=== PATIENT | female | born 1955 | race Caucasian/White ===

== ENCOUNTER → 2017-02-16 | Outpatient (CLI) | payer BC ==
--- NOTE | 2017-02-16 09:24 | BD ---
EXAMINATION TYPE: MG DEXA axial skeleton. DATE OF EXAM: 02/16/2017 CLINICAL HISTORY: Known osteoporosis per order. Height: 4 ft, 11 inches Weight: 93 pounds FRAX RISK QUESTIONS: Alcohol (3 or more units per day): no Family History (Parent hip fracture): no, grandfather Glucocorticoids (More than 3mos): yes; inhaler (Ex: prednisone, prednisolone, methylprednisolone, dexamethasone, and hydrocortisone). History of Fracture in Adulthood: left wrist 2006 Secondary Osteoporosis: 1. Type 1 Diabetes: no 2. Hyperthyroidism: no 3. Menopause before 45: yes, partial hysterectomy age 26 4. Malnutrition: no 5. Chronic liver disease: no Rheumatoid Arthritis: no Current Tobacco Use: yes RISK FACTORS HISTORY OF: Family History of Osteoporosis: no Drink Alcohol: very very rarely Active: yes Diet low in dairy products/other sources of calcium: at least one serving a day Postmenopausal woman: yes Take estrogen and/or progesterone medications: not now How long: a couple years Lost more than 2 inches in height since high school: no Frequent falls: no Poor Health: fair Hyperparathyroidism: no Adrenal Insufficiency: no MEDICATIONS: Prednisone or other steroids: yes, inhaler How Long: over 10 years Thyroid Medications: no Osteoporosis Medications: not now Which medication: injections How Long: twice Additional Medications: blood pressure meds, cholesterol Additional History: Breast CA, chemo, epidurals on back for pain(fell years ago & injured lower back. ..unsure if lumbar fracture); bleeding ulcers causing weight loss EXAM MEASUREMENTS: Bone mineral densitometry was performed using the [employer] System. Bone mineral density as measured about the Lumbar spine is: ----- L1-L4(G/cm2): 0.638 T Score Values are as follows: ----- L2: -4.6 ----- L3: -4.7 ----- L4: -4.3 ----- L1-L4: -4.5 Bone mineral density not previously done at this facility; done elsewhere Bone mineral density about the R hip (g/cm2): 0.625 Bone mineral density about the L hip (g/cm2): 0.622 T Score values are as follows: -----R Neck: -3.0 -----L Neck: -3.0 -----R Total: -3.1 -----L Total: -3.1 Bone mineral density not previously done at this facility; done elsewhere IMPRESSION: Osteoporosis (T Score less than -2.5) as noted by T Score values is confirmed in the low back and bot h hips. There is increased fracture risk and therapy is usually indicated based on age. Re-Screen 1-2 years. NOTE: T-SCORE=SD OF THE YOUNG ADULT MEAN.
--- NOTE | 2017-02-16 13:59 | MM ---
Reason for exam: screening (asymptomatic). History: Patient has history of breast cancer at age 35. Implant in the right breast. Mastectomy of the left breast. Chemotherapy. Physical Findings: Nurse did not find any significant physical abnormalities on exam. MG Screen Angela Unilateral W/Cad Bilateral CC and MLO view(s) were taken. ID view(s) were taken of the right breast. The breast tissue is heterogeneously dense. This may lower the sensitivity of mammography. No significant changes when compared with prior studies. ASSESSMENT: Benign, BI-RAD 2 RECOMMENDATION: Routine screening mammogram of the right breast in 1 year.
== END | disposition home or self-care (01) ==
LOC: RADBDWWP 08:19
PROVIDERS: ATTEND Family Medicine
DX: Z12.31 Encounter for screening mammogram for malignant neoplasm of breast (principal); M81.0 Age-related osteoporosis without current pathological fracture; Z98.82 Breast implant status; Z85.3 Personal history of malignant neoplasm of breast
CPT/HCPCS: 77080; G0202

== ENCOUNTER → 2017-04-02 | Outpatient (CLI) | payer BC ==
--- NOTE | 2017-04-02 09:46 | NM ---
EXAMINATION TYPE: NM gastric emptying study DATE OF EXAM: 04/02/2017 COMPARISON: NONE HISTORY: Gastroesophageal reflux Following administration of 2.2 mCi Tc 99m Sulfur Colloid with 1 cup of oatmeal projection images of the abdomen were obtained 10 minutes post ingestion. When possible, both anterior and posterior proje ction images were obtained to allow the calculation of the geometric mean activity. Clearance: 77 % Half-life: 40 min Gastroesophageal reflux: None IMPRESSION: Gastric emptying: Normal Gastroesophageal reflux: None Gastric emptying normal percentage values: 30 minutes: <70% of retention (> 30% emptying) suggests abnormally fast emptying. 60 minutes: <90% retention (>10% emptying) is normal; less than 30% retention (>70% emptying) suggest s abnormally rapid emptying. 90 minutes: <65% retention (> 35% emptying) is normal. 120 minutes: <60% retention (> 40% emptying) is normal. 180 minutes: <30% retention (> 70% emptying) is normal. Gastric emptying T-1/2: Solid: The normal range is 60-105 minutes Liquid only: Normal range is 10-45 minutes. Liquid only-children: At 60 minutes, normal range is 44-58 % . Liquid only-infants: At 60 minutes, normal range is 32-64 %. Additional references: Gastric Emptying Scintigraphy http://bit.[email or web address]
== END | disposition home or self-care (01) ==
LOC: RADNMMAIN 07:24
DX: K21.0 Gastro-esophageal reflux disease with esophagitis (principal)
CPT/HCPCS: 78264; A9541

== ENCOUNTER → 2017-04-06 | Outpatient (CLI) | payer BC ==
[2017-04-01 13:11] VITALS: BMI 17.7
[2017-04-06 13:32] VITALS: BP 89/58; PULSE 70; RESP 16; TEMP 98.6
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
== END | disposition home or self-care (01) ==
LOC: PNWHC3 12:50
PROVIDERS: ATTEND Anesthesiology
DX: M79.7 Fibromyalgia (principal); J44.9 Chronic obstructive pulmonary disease, unspecified; K21.9 Gastro-esophageal reflux disease without esophagitis; I10 Essential (primary) hypertension; F17.200 Nicotine dependence, unspecified, uncomplicated; Z79.899 Other long term (current) drug therapy; Z88.6 Allergy status to analgesic agent
CPT/HCPCS: 80307; 80346; 80364; 99211

== ENCOUNTER → 2017-04-27 | Outpatient (CLI) | payer BC ==
[2017-04-27 18:59] LABS: Non-African American GFR(MDRD) >60 (>60 ml/min/1.73 sqM)
--- NOTE | 2017-04-27 23:14 | MR ---
EXAMINATION TYPE: MR lumbar spine wo/w con DATE OF EXAM: 04/27/2017 COMPARISON: NONE HISTORY: LBP, BLE radic since 2005, hx breast ca 25 yrs ago TECHNIQUE: Multiplanar, multisequence images of the lumbar spine were acquired utilizing 8 mL intravenous MultiH ance gadolinium contrast. There is 2 cm anterior subluxation of L5 in relation to S1. There is bilateral L5 spondylolysis. I se e no lumbar disc herniation. There is no significant spinal stenosis in spite of the second-degree L5 -S1 spondylolisthesis. There is no compression fracture. There is narrowing of L5-S1 disc space. Ther e is no paraspinal mass. Sacroiliac joints appear intact. I see no pathologic enhancement. IMPRESSION: Second-degree L5-S1 spondylolisthesis. Bilateral L5 spondylolysis. No acute bony abnormality. No sign ificant spinal stenosis seen. Severe narrowing of L5-S1 disc space. Mild bilateral neural foraminal i mpingement at L5-S1 due to subluxation deformity.
== END | disposition home or self-care (01) ==
LOC: RADMRIMAIN 18:32
PROVIDERS: ATTEND Anesthesiology
DX: M48.07 Spinal stenosis, lumbosacral region (principal); M43.17 Spondylolisthesis, lumbosacral region; M47.816 Spondylosis without myelopathy or radiculopathy, lumbar region
CPT/HCPCS: 82565; 72158; 36415; A9577

== ENCOUNTER → 2017-05-04 | Outpatient (CLI) | payer BC ==
[2017-05-04 12:16] VITALS: BP 146/75; PULSE 70; RESP 16; TEMP 97.8
--- NOTE | 2017-05-04 12:36 | P.PN ---
Progress Note - Text This is a 61-year-old female with lower back pain due to lumbar spondylosis without myelopathy and right lumbar radiculopathy. The pain radiates down the right leg to the right foot with numbness and tingling in her right leg. The patient uses to respond to lumbar epidural steroid injection on the last time she had any injections on her back was in September 2016. The patient also uses morphine and she has been on this for a few years now. The patient understands that we cannot prescribe opioids for her for more than a few months and she has to look for a primary care physician who is willing to prescribe these medications. The patient should be weaned down on her dose and I went down from MS Contin 60 last time to MS Contin 30 mg now. I will schedule the patient to have lumbar epidural steroid injection will give her prescription for 1 month of the above-mentioned medicatiot however I will go down on the morphine IR to twice a day.
== END | disposition home or self-care (01) ==
LOC: PNWHC3 11:40
PROVIDERS: ATTEND Anesthesiology
DX: M47.816 Spondylosis without myelopathy or radiculopathy, lumbar region (principal)
CPT/HCPCS: 99211

== ENCOUNTER 2017-05-28 08:19 | Day surgery (SDC) | payer BC ==
[2017-05-27 09:11] VITALS: BMI 18.3
[~2017-05-28 08:19] MED LIST: LACTATED RINGERS 1,000 ML IV SCH
[2017-05-28 08:34] VITALS: TEMP 97.6
[2017-05-28] MEDS ORDERED: LIDOCAINE 1% 20 ML VIAL (10MG/ML) FOR IV START INTRADERMA ONE (08:48)
--- NOTE | 2017-05-28 08:55 | P.PN ---
Progress Note - Text Patient filled opioid medications from her PCP's office. Instructed her to get all medications from this individual, including her MSContin so she does not go into opioid withdrawal, which could include severe nausea/vomiting/diarrhea and potentially if it were to be severe. Patient verbalized understanding of these risks.
--- NOTE | 2017-05-28 09:10 | P.PCN ---
Date of Procedure: 05/28/17 Surgeon: Milton Duran Pathology: none sent Condition: stable Disposition: PACU Description of Procedure: PREOPERATIVE DIAGNOSIS: 1-Lumbar radiculitis. POSTOPERATIVE DIAGNOSIS: 1-Lumbar radiculitis. PROCEDURE 1. Lumbar epidural steroid injection under fluoroscopic guidance at the L5-S1 level. 2. Lumbar epidurogram. ANESTHESIA: Local with 1% lidocaine; IV sedation with Versed/fentanyl. EBL: Minimal PROCEDURE INDICATION: The patient with low back pain and radiculitis symptoms unresponsive to conservative treatment. Fluoroscopy was used to optimize visualization of the needle placement and to maximize safety. No use of blood thinners. LESI #1 today. PROCEDURE DESCRIPTION / TECHNIQUE: The patient was seen and identified in the preoperative area. Risks, benefits, complications, and alternatives were discussed with the patient, including but not limited to bleeding, infection, nerve damage, allergic reactions to medications, and incomplete pain relief. The patient agreed to proceed with the procedure and signed the consent after all questions were answered. IV was started, and vital signs were stable. Patient was taken to the OR and time out was completed to confirm patient position, procedure, laterality of pain, and allergies. The patient was placed in the prone position on procedure table and a pillow was placed under the abdomen to reduce lumbar lordosis. The lumbosacral area was prepped and draped in the usual sterile fashion. Critical pause was taken. Vital signs were closely monitored during the procedure. Conscious sedation was used during the procedure to decrease patients anxiety. Using anterior-posterior fluoroscopy, the L5-S1 interlaminar space was identified and the skin over this site was marked and then infiltrated with 1% lidocaine subcutaneously. Subsequently, a 20-gauge Tuohy epidural needle was inserted and advanced toward the epidural space using the Loss of resistance technique and guided by AP and lateral fluoroscopy. The correct needle position in the epidural space was verified with the injection of 2 mL of the water soluble contrast dye Omnipaque 300 contrast and observing an excellent epidurogram with the epidural spread of the dye, after negative aspiration for blood and CSF and in the absence of paresthesias. Again after negative aspiration, a 8 ml mixture containing 20 mg of PF Decadron and 5 ml of preservative free Normal Saline, and 2 ml of preservative free lidocaine 1% solution was injected and a washout of epidurogram was seen. Needle was withdrawn intact, skin was cleansed, and bandages were applied. COMPLICATIONS: None COMMENTS: DISPOSITION / PLANS: The patient was placed in a supine position and transferred to the recovery area in a stable condition for observation. There was no evidence of lower extremity motor or sensory deficit after the procedure. Patient was discharged from the recovery room after meeting discharge criteria. Home discharge instructions were given to the patient by the staff. The patient was reexamined prior to discharge and there were no issues. The patient will schedule a repeat procedure in 2-4 weeks. Of note, patient has begun getting opioids from PCP and notes that she did change physicians for her medications. I advised her to follow up to get her MSContin refilled to ensure she does not go into withdrawal. She verbalized understanding.
[2017-05-28] MEDS ORDERED: IV FLUID CONTINUATION 1,000 ML IV ONE ×2 (09:15)
--- NOTE | 2017-05-28 09:22 | FL ---
EXAMINATION TYPE: FL guided pain mgmt statistic DATE OF EXAM: 05/28/2017 HISTORY: Pain Lumbar epidural injection was performed. 12 SEC FL, 2 FILMS SCANNED
[2017-05-28 09:33] VITALS: BP 127/68; PULSE 62; RESP 18
== END 2017-05-28 09:44 | disposition home or self-care (01) ==
LOC: ORPAIN 08:19
PROVIDERS: ATTEND Anesthesiology
DX: M47.26 Other spondylosis with radiculopathy, lumbar region (principal); M43.17 Spondylolisthesis, lumbosacral region; Z79.891 Long term (current) use of opiate analgesic
CPT/HCPCS: 62323; J2250; J1100; Q9965; J3010; 99152

== ENCOUNTER 2017-07-27 06:25 | Day surgery (SDC) | payer BC ==
[2017-07-23 15:57] VITALS: BMI 18.6
[2017-07-27 06:50] VITALS: TEMP 98.1
[2017-07-27] MEDS ORDERED: LIDOCAINE 1% 20 ML VIAL (10MG/ML) FOR IV START INTRADERMA ONE (07:01)
--- NOTE | 2017-07-27 07:37 | P.PCN ---
Date of Procedure: 07/27/17 Preoperative Diagnosis: Lumbar spondylosis without myelopathy Myofascial pain in the cervical area Postoperative Diagnosis: Same as above Procedure(s) Performed: Lumbar bilateral medial branch block under fluoroscopic guidance for 3 levels L 3-4, L4 5 and L5-S1. trigger point injection in the cervical paravertebral musculature and trapezius muscles bilaterally Anesthesia: MAC (IV conscious sedation with fentanyl and Versed) Surgeon: Amira Zhong Pathology: none sent Condition: stable Disposition: PACU Description of Procedure: the patient was seen and identified in the preop holding area , risks and benefits and possible complications of the procedure and alternatives were discussed with the patient, and the patient agreed to proceed with the procedure and signed the consent. IV was started and vital signs monitored during the procedure and fluoroscopy was used to maximize the benefit and accuracy of the needle placement, sedation was given to decrease patient anxiety, patient was taken to the procedure room and placed in prone position vital signs monitored. The patient was seen in the preop holding area consent was obtained then she was brought into the procedure room and placed in prone position. Skin was prepped with Chloraprep and draped in a sterile manner. Lidocaine 1% was used to numb the skin up at the target points that were chosen as follows: at the L5-S1 level which corresponds to the dorsal ramus of L5 the target points were at the superior medial aspect of the sacral ala on each side of the spine on the AP view of fluoroscopy, and for the L3 and L4 medial branches the target points were the connection between the transverse process and the superior to go process of L4 and L5 respectively on the oblique views of fluoroscopy. I used 22-gauge 3-1/2 inch Quincke spinal needles for this procedure and after contacting bone at the target points mentioned above I injected 1 mL of a mixture made of Marcaine 0.5% 6 mils +40 mg of Kenalog . Then I marked the trigger points areas and the neck and cleaning the skin with ChloraprepPrep I used 25-gauge 1-1/2 inch needle to go through the skin into the muscles of the cervical paravertebral area and also in the trapezius muscles bilaterally and injected 1 mL of Marcaine 0.5% in each point with a total of 4 points injected Patient tolerated procedure well. At the end of the procedure the needles removed and a bandage applied after the skin was cleaned the cleaning solution. patient was then taken to the recovery room in stable condition and monitored in the recovery room for 20-30 minutes and discharged home in stable condition after discharge criteria met .
[2017-07-27 07:40] VITALS: RESP 16
[2017-07-27] MEDS ORDERED: IV FLUID CONTINUATION 800 ML IV ONE (07:40)
[2017-07-27 07:52] VITALS: BP 129/68; PULSE 67
--- NOTE | 2017-07-27 08:02 | FL ---
Fluoroscopy History: everardo. lumbar facets 5 sec-3 paper films
== END 2017-07-27 08:06 | disposition home or self-care (01) ==
LOC: ORPAIN 06:25
PROVIDERS: ATTEND Anesthesiology
DX: M47.816 Spondylosis without myelopathy or radiculopathy, lumbar region (principal); M79.1 Myalgia; I10 Essential (primary) hypertension
CPT/HCPCS: 20553; 64493; 64494; 64495; J2250; J3301; J3010; 99152

== ENCOUNTER → 2017-12-16 | Outpatient (CLI) | payer BC ==
[2017-12-16 11:49] VITALS: BP 159/84; PULSE 86; RESP 16
--- NOTE | 2017-12-16 12:20 | P.PN ---
Progress Note - Text Progress Note Date: 12/16/17 Patient returns for followup for chronic back pain with radiation to legs. Patient recently underwent LMBB x 2 last fall and still has relief from the injections, but is complaining of some numbness/tingling RLE > LLE, although this has improved with physical therapy. Patient continues on OTC medications for pain. Patient denies adverse drug effects from medications. Today, pt denies new-onset weakness, bowel/bladder incontinence, or any other signs or symptoms of cauda equina syndrome. There are no signs of acute intoxication, and no indications of medication diversion or overuse. In addition to above, 13-point review of systems is also negative for chest pain , shortness of breath, changes in vision, changes in hearing, new onset weakness , abdominal pain, diarrhea, extreme fatigue, malaise, fever, skin changes, homicidal or suicidal ideation, or bowel or bladder incontinence. Vital Signs: Reviewed in EMR Gen: WDWN, AAOx3, NAD HEENT: NCAT, EOMI, hearing grossly normal Pulm: resp unlabored Abd: soft, NT, ND Neck: supple, trachea midline ROM in flexion lumbar spine: reduced ROM in extension lumbar spine: reduced Lumbar paravertebral tenderness: + Facet loading: + bilateral, L > R SI joint tenderness: neg Marvin's test: neg Straight leg raise: neg Neuro: CN II-XII grossly intact, muscle strength lower extremities PRESERVED Imaging: Reviewed in EMR Assessment: 1. lumbar radiculitis 2. lumbar spondylosis 3. chronic pain syndrome Plan: 1. Explanation: Opioid and psychological risk scores were reviewed. Diagnoses , prognoses, and multiple treatment options including but not limited to physical therapy, interventional therapies, adjuvant medical therapies, narcotic medication therapies, and surgery were discussed with the patient and all questions were answered to the patient's satisfaction. 2. Opioid agreement: no opioids prescribed today 3. Counseling: The patient was counseled extensively on SMOKING CESSATION, BODY MASS INDEX, EXERCISE. Specifically, the patient was instructed regarding the importance of smoking cessation, weight control, and exercise in the context of both chronic pain and overall health. 4. Procedures: none for now, consider LESI if patient still has numbness/ tingling in RLE at next visit 5. Consultations: None 6. Investigations: None 7. Medications: none for now 8. Disposition: f/u for re-eval 6 weeks PQRS measures: 1-Patient's medications are documented in the chart. 2-Tobacco use is negative 3-Patient has not had a pneumococcal vaccine. 4-Advanced care planning discussed, patient unable to give. 5-Opioid contract signed with the patient. 6-Pain positive, follow-up visit or procedure scheduled 7-Patient's blood pressure measured and documented, and patient will follow up with the primary care due to hypertension. 8-Patient's weight was measured, and body mass index within the normal limits 9-Patient WAS NOT identified as an unhealthy alcohol user.
== END | disposition home or self-care (01) ==
LOC: PNWHC3 11:35
PROVIDERS: ATTEND Anesthesiology
DX: G89.4 Chronic pain syndrome (principal); M47.26 Other spondylosis with radiculopathy, lumbar region; Z79.899 Other long term (current) drug therapy
CPT/HCPCS: 99211

== ENCOUNTER → 2018-02-19 | Outpatient (CLI) | payer BC ==
--- NOTE | 2018-02-19 21:07 | MR ---
"EXAMINATION TYPE: MR brain wo/w con DATE OF EXAM: 02/19/2018 COMPARISON: NONE HISTORY: Headaches TECHNIQUE: Multiplanar, multisequence images of the brain and brainstem is performed without and with IV contras t, utilizing 4.5 mL intravenous Gadavist . FINDINGS: Diffusion weighted images demonstrate no evidence of a recent infarct or other diffusion ab normality. White matter: Approximately 20 areas of abnormal signal the white matter in addition to mild confluent signal surro unding the ventricles. All lesions measure less than 5 mm. No subcortical lesions No lesions perpendicular to ventricular system. No callosal lesions. No enhancing lesions. Midline structures demonstrate normal morphology. The craniocervical junction appears within normal limits. Post contrast images demonstrate no abnormal enhancement. Changes of chronic sinusitis noted . Within the right basal ganglia there is a linear area of heterogeneous signal with surrounding low si gnal on all sequences suggestive of hemosiderin correlate for history of previous hemorrhagic infarct ion of the right basal ganglia. There is a nodular protuberance involving the left MCA in the region of the bifurcation measuring kaitlin roximately 5 to 6 mm suspicious for aneurysm IMPRESSION: 1. 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 2. Nonspecific white matter changes as discussed above. Differential diagnosis would include remote m icrovascular ischemia, hypertension, demyelinating process, vasculitis, or Lyme's disease. 3. 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 MRA [place] of [place] is recommended. A Yellow level critical message alert has been initiated for Yocasta Mistry MD via the [employer] | Critical Results System on 02/19/2018 9:05 PM. This message alert has been sent to Yocasta Mistry MD via the preferences provided by the clinician for the receipt of Radiology Critical Findings. [facility] [place] [id number]."
== END | disposition home or self-care (01) ==
LOC: RADMRIMAIN 19:36
PROVIDERS: ATTEND Psychiatry & Neurology Neurology
DX: R90.89 Other abnormal findings on diagnostic imaging of central nervous system (principal)
CPT/HCPCS: 82565; 84520; 70553; 36415; A9581

== ENCOUNTER → 2018-03-12 | Outpatient (CLI) | payer BC ==
--- NOTE | 2018-03-13 04:20 | MR ---
EXAMINATION TYPE: MR cervical spine wo con DATE OF EXAM: 03/12/2018 COMPARISON: NONE HISTORY: Hedaches, neck pain x several years TECHNIQUE: Multiplanar, multisequence images of the cervical spine were acquired. The cervical vertebra have normal spacing and alignment for the patient's age. There are small financial manager ior disc bulge at C3-4 C4-5 C5-6 without impingement on the spinal canal. Cervical spinal cord has no rmal signal pattern. There is no edema. Brainstem appears normal. There is no spinal stenosis. There is no cervical paraspinal mass. The facet joints are intact. IMPRESSION: Minimal posterior disc bulging of doubtful significance. Otherwise negative MR scan of the cervical s pine. No spinal stenosis.
== END | disposition home or self-care (01) ==
LOC: RADMRIMAIN 18:06
PROVIDERS: ATTEND Psychiatry & Neurology Neurology
DX: M54.2 Cervicalgia (principal)
CPT/HCPCS: 72141

== ENCOUNTER → 2018-03-22 | Outpatient (CLI) | payer BC ==
--- NOTE | 2018-03-23 06:26 | MR ---
EXAMINATION TYPE: MR angio head wo con DATE OF EXAM: 03/22/2018 COMPARISON: Prior MRI brain February 19, 2018 HISTORY: Headache, abnormal mri of brain TECHNIQUE: Time of flight images focusing on the [place] of [place] were performed without contrast.. 2-D and 3-D postprocessing imaging is performed. FINDINGS: A dominant left vertebral artery is redemonstrated. Vertebral arteries are patent to basila r junction. There is no significant focal stenosis or aneurysmal change identified. There is patent r ight posterior communicating artery. There is small caliber but patent left posterior communicating a rtery. Images of the anterior circulation confirm eccentric aneurysm at left MCA distal branching or trifurc ation seen best images 93 through 99 with narrow neck measuring approximately 6.8 x 3.7 mm arising fr om the anterior margin there is a branching vessel extending anteriorly, medial, and superior to this before coursing laterally. Remainder of anterior circulation shows no additional aneurysm. There is patent anterior communicating artery seen. 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 Advise neurosurgical and/or endovascular consult or referral.
== END | disposition home or self-care (01) ==
LOC: RADMRIMAIN 17:08
PROVIDERS: ATTEND Psychiatry & Neurology Pain Medicine
DX: I67.1 Cerebral aneurysm, nonruptured (principal)
CPT/HCPCS: 70544

== ENCOUNTER → 2018-12-06 | Outpatient (CLI) | payer BC ==
--- NOTE | 2018-12-06 22:35 | MR ---
EXAMINATION TYPE: MR angio head wo con DATE OF EXAM: 12/06/2018 COMPARISON: Prior MRA brain April 01, 2018. HISTORY: Cerebral aneurysm TECHNIQUE: Time of flight images focusing on the [place] of [place] were performed without contrast.. 2-D and 3-D postprocessing imaging is performed MRI scanner and reviewed. FINDINGS: There is dominant left vertebral artery redemonstrated. Vertebral arteries are patent to ba silar junction. There is no significant focal stenosis or aneurysmal change. Patent bilateral posteri or communicating arteries are identified bilaterally with redemonstration of small caliber left poste rior communicating artery noted. Images of the anterior circulation demonstrate new artifact from coil embolization anteriorly at left MCA trifurcation along the anterior margin. No new aneurysm is seen. Slight aneurysm prominence of t he left M2 segment on the anterior medial aspect measuring 3.0 mm at branching vessel origin image 97 is unchanged from prior study. Patent anterior communicating artery is redemonstrated. IMPRESSION: Interval successful coiling of distal left MCA trifurcation aneurysm. No new aneurysm is seen.
== END | disposition home or self-care (01) ==
LOC: RADMRIMAIN 13:37
PROVIDERS: ATTEND Neurological Surgery
DX: I67.1 Cerebral aneurysm, nonruptured (principal)
CPT/HCPCS: 70544

== ENCOUNTER → 2019-11-28 | Outpatient (CLI) | payer BC ==
--- NOTE | 2019-11-29 08:48 | CT ---
EXAMINATION TYPE: CT angio head DATE OF EXAM: 11/28/2019 5:33 PM COMPARISON: MRA brain December 06, 2018 HISTORY: Follow up for cerebral aneurysm. CT DLP: 2136 mGycm Automated exposure control for dose reduction was used. TECHNIQUE: Performed without and with IV Contrast, patient injected with 100ml mL of Isovue 370. 3D reconstructed images are created on an independent workstation and reviewed.. FINDINGS: Noncontrast CT shows left frontal craniotomy changes. There is no acute intracranial hemorrhage or mi dline shift. There is diffuse ventricular and sulcal prominence. There is low attenuation in the noel ventricular white matter. The sinuses are clear and the globes are intact. There is aneurysm clip in the left middle cerebral artery distribution. CTA images redemonstrate dominant left vertebral artery. Vertebral arteries are patent to basilar dory ction. Some tortuosity is seen. There is a patent right posterior communicating artery. There is hypo plastic left posterior communicating artery. No new aneurysm is evident. No significant stenosis is s een. Anterior circulation shows aneurysm clip near level of the left MCA trifurcation. Small aneurysm or p rominence roughly 3 mm near this level anteriorly seen best image 9 series 13 is thought stable from MRI. Review of raw data 1 mm images near images 355 through 365 show this prominence along the anteri or medial aspect at origin of 2 branching vessels one extending medially and one extending anteriorly which immediately bifurcates. This correlates with small branching vessels seen better on MRI raw d josue and MIP images. Patent anterior communicating artery is seen. No significant focal stenosis or ne w aneurysmal change is identified. IMPRESSION: Stable focal prominence or dilatation possible 3 mm aneurysmal change of the left middle cerebral artery roughly 1 cm proximal to the aneurysm clip corresponding to an area of small branchin g vessel origin as detailed above. No significant change or progression from prior MRI. No new aneury sm is seen.
== END | disposition home or self-care (01) ==
LOC: RADCTMAIN 16:41
PROVIDERS: ATTEND Neurological Surgery
DX: I67.1 Cerebral aneurysm, nonruptured (principal)
CPT/HCPCS: 70496; Q9967

== ENCOUNTER → 2020-07-17 | Outpatient (CLI) | payer BC ==
--- NOTE | 2020-07-18 07:19 | CT ---
EXAMINATION TYPE: CT lumbar spine wo con DATE OF EXAM: 07/17/2020 6:54 PM COMPARISON: None. HISTORY: Spondylolisthesis. Low back pain for 3.5 months causing pain or numbness into bilateral lowe r extremities with weakness. History of stimulator. CT DLP: 345.30 mGycm Automated exposure control for dose reduction was used. Unenhanced CT of the lumbar spine was performed. Bone and soft tissue window settings are submitted as well as coronal and sagittal reconstructions. Bilateral pars defect at L5 level with significant spondylolisthesis. Grade 3 anterolisthesis of L5 o n S1 measuring up to 18 mm on sagittal image 40 for reference. Moderate to severe disc space narrowin g with vacuum disc phenomenon and endplate sclerosis at this level. Mild height loss of the posterior superior L5 vertebra. Vertebral body heights and disc space heights are satisfactory above this. Ali gnment is satisfactory on coronal images. No large disc herniations are present. Axial images show T12-L1, L1-L2, and L2-L3 levels to appear within normal limits. Axial images at the L3-L4 level shows mild facet degenerative changes bilaterally with mild ligament flavum hypertrophy effacing the posterolateral thecal sac. There is mild broad disc bulge minimally e ffacing the anterior thecal sac left paracentral region. Patent bilateral neural foramina noted. Axial images at L4-L5 level show mild to moderate broad-based posterior disc protrusion and moderate facet arthropathy. Mild effacement of anterior and posterior lateral thecal sac. Moderate bilateral i nferior neural foraminal narrowing. Axial images at the L5-S1 level shows severe spondylolisthesis and advanced facet arthropathy. There is fairly severe bilateral neural foraminal narrowing and lateral recess stenosis. Spinal canal shows narrowing on sagittal images along lateral aspect due to spondylolisthesis and facet arthropathy. AP diameter narrowing also noted due to spondylolisthesis. There are nonobstructing calculi bilaterally. Approximately 10 calculi are present in each kidney lemuel suring up to 4-5 mm long axis in size lower pole level on the left coronal image 21 for reference. Moderate calcified plaque in the abdominal aorta. Gallbladder has distended margins. Somewhat contrac abimbola stomach suggests overall fasting state. Emphysematous change in the lung bases with scattered ble bs noted. IMPRESSION: Bilateral pars defect L5 level with severe grade 3 spondylolisthesis. Multilevel degenera tive changes mid to lower lumbar spine greatest at L5-S1 level. Note is made of multiple small bilate ral nonobstructing renal calculi.
== END | disposition home or self-care (01) ==
LOC: RADCTMAIN 18:16
PROVIDERS: ATTEND Nurse Practitioner Family
DX: M43.16 Spondylolisthesis, lumbar region (principal); M47.817 Spondylosis without myelopathy or radiculopathy, lumbosacral region
CPT/HCPCS: 72131

== ENCOUNTER → 2021-04-02 | Outpatient (CLI) | payer BC ==
--- NOTE | 2021-04-02 16:16 | CT ---
EXAMINATION TYPE: CT brain w con DATE OF EXAM: 04/02/2021 COMPARISON: CT brain 11/28/2019 INDICATION: Follow up for cerebral aneurysm. DLP: 961 mGycm, Automated exposure control for dose reduction was used. CONTRAST: None CT of the brain is performed utilizing 3 mm thick sections through the posterior fossa and 3 mm thick sections through the remaining calvarium. Study is performed within 24 hours of arrival to the hosp [facility]. No abnormal hyperdensity is present to suggest an acute intracranial hemorrhage. No mass lesion is evident. No acute infarcts are evident. Periventricular white matter hypodensities present, likely on the basi s of chronic white matter ischemic change. No significant interval change is evident. Ventricles and sulci are appropriate for the patient age. Paranasal sinuses and mastoid air cells within the [id number] are clear. There is prior left tempo ral craniotomy. Some postsurgical changes are along the left temporal lobe. Surgical clip is present in the middle cerebral artery region. Postsurgical change appears stable from comparison. IMPRESSIONS: 1. Aneurysm clip left middle cerebral artery branching left middle cranial fossa. Beam hardening ar tifact is present. Postsurgical change of the left temporal lobe is present. Findings appear stable f rom comparison. 2. Chronic appearing periventricular white matter ischemic changes.
== END | disposition home or self-care (01) ==
LOC: RADCTMAIN 15:32
PROVIDERS: ATTEND Neurological Surgery
DX: I67.1 Cerebral aneurysm, nonruptured (principal)
CPT/HCPCS: 70460; Q9967

== ENCOUNTER 2023-09-03 07:54 | Day surgery (SDC) | payer BC, MEDICARE ==
[2023-09-03] MEDS ORDERED: diazePAM 5 MG TAB PO STA (08:35)
[2023-09-03 09:39] VITALS: TEMP 97.8
[2023-09-03] MEDS ORDERED: HYDROcodone/APAP 10-325MG 1 EACH TAB PO PRN (10:21)
[2023-09-03 10:28] VITALS: RESP 16
[2023-09-03 10:53] VITALS: PULSE 72
--- NOTE | 2023-09-03 15:39 | CT ---
EXAMINATION TYPE: CT lumbar spine w con CT DLP: 700 mGycm, Automated exposure control for dose reduction was used. DATE OF EXAM: 09/03/2023 11:21 AM COMPARISON: CT 07/17/2020.. CLINICAL INDICATION:Female, 68 years old with history of spondylolisthesis TECHNIQUE: Intrathecal injection was performed by the Department of radiology. Multiple axial images were obtained from the midportion of T11 through the sacroiliac joints. Soft tissue and bone window s in coronal and sagittal planes were obtained and reviewed. Contrast used: mL of , none. Oral contrast used: none. Intrathecal contrast with 13 cc of Isovue M 200. FINDINGS: There is epidural injection of contrast layering along the anterior thecal sac. There is grade 3 internal listhesis of L5 on S1 with bilateral pars and articularis defects. Multilev el degeneration changes throughout the spine. There is pseudoarthrosis of the spinous processes and l umbar spine. Multilevel degeneration with osteophyte formation facet arthropathy. Discs: T12-L1: No spinal canal or neural foraminal stenosis is identified. L1-L2: No spinal canal or neural foraminal stenosis is identified. L2-L3: No spinal canal or neural foraminal stenosis is identified. L3-L4: Facet joint arthropathy and disc bulging result with mild spinal canal stenosis and mild bilat eral neural foraminal stenosis. L4-L5: Facet joint arthropathy and disc bulging result with mild spinal canal stenosis and mild bilat eral neural foraminal stenosis. L5-S1: Grade 3 anterolisthesis of L5 on S1 with bilateral spondylolysis and severe spinal canal steno sis. There is severe bilateral neural foraminal stenosis. Other: Excreted IV contrast is seen within the collecting system. IMPRESSION: 1. Grade 3 anterolisthesis of L5 on S1 with bilateral spondylolysis and severe spinal canal stenosis . There is severe bilateral neural foraminal stenosis. 2. 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
[2023-09-03 18:16] VITALS: BP 169/80
--- NOTE | 2023-09-03 20:25 | FL ---
PROCEDURE: Lumbar puncture. DATE: 09/03/2023 CLINICAL HISTORY: 68-year-old female with ongoing severe low back pain COMPLICATIONS: None SEDATION: Oral valium administered by radiology. The patient and the patient's vital signs were monitored by q ualified independent radiology personnel. TECHNIQUE: The procedure and potential risks were explained to patient and an informed consent was obtained with teach back. Site and side was verified. A time out was performed. The patient was placed prone on the fluoroscopy table and the L3-L4 level was localized and the skin was marked and was prepped and draped in the usual sterile fashion. Lidocaine was used for local anesthesia. Utilizing fluoroscopic guidance a 22-gauge spinal needle was placed through the skin and into the subarachnoid space. Clear CSF was visualized at the needle hub. Subsequently, 13 mL Isovue M2 100 was administered into t he intrathecal sac. Some inadvertent epidural contrast injection was noted. The patient tolerated the procedure well and was sent back to CT room in satisfactory condition. The estimated blood loss was minimal. The patient's condition was unchanged following the procedure. Fluoroscopy time: 2.25 fl time Total images: 2 Total DAP: 15 mGycm2 IMPRESSION: Successful Lumbar Myelogram for CT. Inadvertent partial epidural contrast injection noted.
== END 2023-09-03 14:28 | disposition home or self-care (01) ==
LOC: RADPROMAIN 07:54
PROVIDERS: ATTEND Physical Medicine & Rehabilitation
DX: M51.36 Other intervertebral disc degeneration, lumbar region (principal); M48.061 Spinal stenosis, lumbar region without neurogenic claudication; M43.17 Spondylolisthesis, lumbosacral region
CPT/HCPCS: 62304; 72132; Q9966

== ENCOUNTER → 2025-03-08 | Outpatient (CLI) | payer MEDICARE ==
--- NOTE | 2025-03-09 15:27 | BD ---
EXAMINATION TYPE: Axial Bone Density DATE OF EXAM: 03/08/2025 CLINICAL HISTORY: 69 years old Female. ICD-10 CODE: M43.16 SPONDYLOLISTHESIS, LUMBAR REGION, M54.16 , Additional History: Height: 55 Weight: 91 FRAX RISK QUESTIONS: Family History (Parent hip fracture): no History of Fracture in Adulthood: yes Secondary Osteoporosis: yes 3. Menopause before 45: yes Current Tobacco Use: yes RISK FACTORS HISTORY OF: History of left Wrist Fracture: yes When: 2006 Surgery to Spine/Hip(right/left)/Wrist (right/left): no MEDICATIONS: Thyroid Medications: no Osteoporosis Medications: yes Which medication: Prolia How Long: december 06 EXAM MEASUREMENTS: Bone mineral densitometry was performed using the [employer] System. Bone mineral density as measured about the Lumbar spine is: ----- L1-L4(G/cm2): 0.617 T Score Values are as follows: ----- L1: -4.9 ----- L2: -4.6 ----- L3: -5.1 ----- L4: -4.3 ----- L1-L4: -4.7 Z Score Values are as follows: ----- L1: -2.4 ----- L2: -2.2 ----- L3: -2.7 ----- L4: -1.9 ----- L1-L4: -2.3 Bone mineral density has: Decreased -3.3% since study of: 02-16-2017 Bone mineral density about the R hip (g/cm2): 0.[address] of left hip T Score values are as follows: -----R Neck: -3.5 -----R Total -3.6 Z Score values are as follows: -----R Neck: -1.4 -----R Total: -1.7 Bone mineral density has: Decreased -11.0% since study of: 02-16-2017 FRAX%s: The graph provided illustrates a 36% chance for a major osteoporotic fx and a 20.7% chance fo r the hips probability for fx in 10 years time. IMPRESSION: Osteoporosis (T Score less than -2.5). There is increased fracture risk and therapy is usually indicated based on age. Re-Screen 1-2 years. NOTE: T-SCORE=SD OF THE YOUNG ADULT MEAN. [facility], , 03/09/2025 3:25 PM
== END | disposition home or self-care (01) ==
LOC: RADBDWWP 16:03
PROVIDERS: ATTEND Neurological Surgery
DX: M51.16 Intervertebral disc disorders with radiculopathy, lumbar region (principal); M43.16 Spondylolisthesis, lumbar region; M81.0 Age-related osteoporosis without current pathological fracture; Z78.0 Asymptomatic menopausal state
CPT/HCPCS: 77080